=== PATIENT | male | born 1960 | race African-American/Black ===

== ENCOUNTER 2019-05-27 16:42 | Emergency (ER) | payer MEDICAID, OTHER ==
[~2019-05-27] VITALS: Ht 182.9 cm; Wt 99.8 kg
[2019-05-27 17:58] LABS: Basophils # (auto) 0.1 uL; Basophils % (auto) 1.9 % (0.0-2.0); Eosinophils # (auto) 0.1 uL; Eosinophils % (auto) 3.2 % (0.0-7.0); Hematocrit 40.7 % (41.0-53.0); Hemoglobin 13.3 g/dL (13.5-17.5); Lymphocytes # (auto) 1.3 uL; Lymphocytes % (auto) 31.1 % (10.0-50.0); Mean Corpuscular Hemoglobin 29.4 pg (28.0-32.0); Mean Corpuscular Hgb Conc. 32.8 g/dL (32.0-36.0); Mean Corpuscular Volume 89.5 fL (80.0-100.0); Monocytes # (auto) 0.5 uL; Monocytes % (auto) 12.5 % (0.0-12.0); Neutrophils # (auto) 2.2 uL; Neutrophils % (auto) 51.3 % (37.0-80.0); Nucleated Red Blood Cells % 0.1 %; Platelet Count (auto) 377 10^3/uL (140-450); Red Blood Cells 4.54 10^6/uL (4.5-5.90); Red Cell Distribution Width 13.9 % (11.8-14.3); White Blood Cell 4.3 10^3/uL (4.4-10.8)
[2019-05-27 18:19] LABS: Albumin 3.4 g/dL (3.4-5.0); Calcium 8.8 mg/dL (8.5-10.1); Potassium 3.9 mmol/L (3.5-5.1)
[2019-05-27 18:24] LABS: Acetaminophen < 2.0 ug/mL (10-30); Bilirubin, Total 0.3 mg/dL (0.2-1.0); Salicylate < 1.7 mg/dL (2.8-20.0); Total Protein 7.3 g/dL (6.4-8.2)
[2019-05-28 01:42] LABS: Alcohol, Urine < 3.0 mg/dL (0-5); Amphetamine Screen, Urine POSITIVE (NEGATIVE); Barbiturate Scree,Urine NEGATIVE (NEGATIVE); Benzodiazephine Screen, Urine NEGATIVE (NEGATIVE); Cannabinoid Screen, Urine NEGATIVE (NEGATIVE); Cocaine Screen, Urine NEGATIVE (NEGATIVE); Opiate Scree,Urine NEGATIVE (NEGATIVE)
[2019-05-28 01:49] LABS: Phencyclidine Screen, Urine NEGATIVE (NEGATIVE)
[2019-05-28] MEDS ORDERED: buPROPion HCL 100 MG TAB PO ONE (22:00)
[2019-05-28] MEDS ORDERED: OLANZapine 5 MG TAB PO ONE (22:00)
[2019-05-28] MEDS: buPROPion HCL 75 MG TAB PO SCH (22:50)
[2019-05-28] MEDS: OLANZapine 5 MG TAB PO SCH (22:50)
[2019-05-29] MEDS ORDERED: OLANZapine 5 MG TAB PO ONE (08:00)
[2019-05-29] MEDS: OLANZapine 5 MG TAB PO SCH ×2 (08:11→21:43)
[2019-05-29] MEDS: buPROPion HCL 75 MG TAB PO SCH ×2 (10:37→21:43)
[2019-05-30] MEDS: buPROPion HCL 75 MG TAB PO SCH (13:16)
[2019-05-30] MEDS: OLANZapine 5 MG TAB PO SCH (13:16)
[2019-05-31 08:00] VITALS: BP 134/90
[2019-05-31] MEDS ORDERED: ACETAMINOPHEN 325 MG TAB PO ONE ×2 (10:00→10:39)
[2019-05-31] MEDS ORDERED: OLANZapine 5 MG TAB ONE (10:24)
[2019-05-31] MEDS ORDERED: buPROPion HCL 75 MG TAB ONE (10:31)
[2019-05-31] MEDS: buPROPion HCL 75 MG TAB PO SCH (10:37)
[2019-05-31] MEDS: OLANZapine 5 MG TAB PO SCH (10:37)
== END 2019-05-31 17:22 | disposition home or self-care (01) ==
LOC: ER 16:48
DX: F32.9 Major depressive disorder, single episode, unspecified (principal); R45.851 Suicidal ideations; I10 Essential (primary) hypertension
CPT/HCPCS: 36415; 80053; 80307; 80329; 85025

== ENCOUNTER 2019-10-28 16:21 | Emergency (ER) | payer MEDICAID ==
[~2019-10-28] VITALS: Ht 188 cm; Wt 98.4 kg
[2019-10-28 16:41] VITALS: BP 112/67
== END 2019-10-28 17:41 | disposition home or self-care (01) ==
LOC: ER 16:21
DX: F31.9 Bipolar disorder, unspecified (principal); Z76.0 Encounter for issue of repeat prescription; B35.9 Dermatophytosis, unspecified; I10 Essential (primary) hypertension; Z88.0 Allergy status to penicillin

== ENCOUNTER 2019-10-29 19:21 | Emergency (ER) | payer MEDICAID ==
[~2019-10-29] VITALS: Ht 182.9 cm; Wt 90.7 kg
[2019-10-29 20:11] VITALS: BP 160/97
[2019-10-29 21:23] LABS: Basophils # (auto) 0 10 ^3/uL (0-0.2); Basophils % (auto) 0.6 % (0.0-2.0); Eosinophils # (auto) 0.1 10 ^3/uL (0-0.8); Eosinophils % (auto) 4.1 % (0.0-7.0); Hematocrit 40.3 % (41.0-53.0); Hemoglobin 13.2 g/dL (13.5-17.5); Lymphocytes # (auto) 1.2 10 ^3/uL (0.4-5.4); Lymphocytes % (auto) 33.7 % (10.0-50.0); Mean Corpuscular Hemoglobin 29.4 pg (28.0-32.0); Mean Corpuscular Hgb Conc. 32.9 g/dL (32.0-36.0); Mean Corpuscular Volume 89.3 fL (80.0-100.0); Monocytes # (auto) 0.5 10 ^3/uL (0-1.3); Monocytes % (auto) 13.6 % (0.0-12.0); Neutrophils # (auto) 1.7 10 ^3/uL (1.6-8.6); Nucleated Red Blood Cells % 0.2 %; Platelet Count (auto) 300 10^3/uL (140-450); Red Blood Cells 4.51 10^6/uL (4.5-5.90); Red Cell Distribution Width 14.3 % (11.8-14.3); White Blood Cell 3.6 10^3/uL (4.4-10.8)
[2019-10-29 21:29] LABS: Albumin 3.1 g/dL (3.4-5.0); BUN/Creatinine Ratio 12.6; Calcium 8.3 mg/dL (8.5-10.1); Magnesium 2.1 mg/dL (1.6-2.6); Potassium 3.9 mmol/L (3.5-5.1)
[2019-10-29 21:31] LABS: Acetaminophen < 2.0 ug/mL (10-30); Bilirubin, Total 0.3 mg/dL (0.2-1.0); Salicylate < 1.7 mg/dL (2.8-20.0); Total Protein 6.6 g/dL (6.4-8.2)
[2019-10-30 02:06] LABS: Urine Bacteria FEW /hpf (None Seen); Urine Blood Negative /uL (Negative); Urine Mucus FEW (None Seen); Urine Specific Gravity 1.033 (1.001-1.035); Urine WBC <1 /hpf (0 - 3)
[2019-10-30 02:17] LABS: Amphetamine Screen, Urine POSITIVE (NEGATIVE); Barbiturate Scree,Urine NEGATIVE (NEGATIVE); Benzodiazephine Screen, Urine NEGATIVE (NEGATIVE); Cannabinoid Screen, Urine NEGATIVE (NEGATIVE); Cocaine Screen, Urine NEGATIVE (NEGATIVE); Phencyclidine Screen, Urine NEGATIVE (NEGATIVE)
[2019-10-30 02:24] LABS: Opiate Scree,Urine NEGATIVE (NEGATIVE)
== END 2019-10-30 06:08 | disposition still patient (30) ==
LOC: ER 19:21 → EDBD 19:21 → ER 10-30 06:08
DX: F19.20 Other psychoactive substance dependence, uncomplicated (principal); R45.851 Suicidal ideations; I10 Essential (primary) hypertension
CPT/HCPCS: 36415; 80053; 80307; 80320; 80329; 81001; 83735; 85025; 93005

== ENCOUNTER → 2019-11-21 | Emergency (ER) | payer MEDICAID ==
[~2019-11-21] VITALS: Ht 185.4 cm; Wt 97.1 kg
[2019-11-21 03:14] LABS: Basophils # (auto) 0.1 10 ^3/uL (0-0.2); Basophils % (auto) 1.1 % (0.0-2.0); Eosinophils # (auto) 0.1 10 ^3/uL (0-0.8); Eosinophils % (auto) 2.9 % (0.0-7.0); Hematocrit 40.4 % (41.0-53.0); Hemoglobin 13.4 g/dL (13.5-17.5); Lymphocytes # (auto) 1.1 10 ^3/uL (0.4-5.4); Lymphocytes % (auto) 22.6 % (10.0-50.0); Mean Corpuscular Hemoglobin 29.7 pg (28.0-32.0); Mean Corpuscular Hgb Conc. 33.1 g/dL (32.0-36.0); Mean Corpuscular Volume 89.6 fL (80.0-100.0); Monocytes # (auto) 0.5 10 ^3/uL (0-1.3); Monocytes % (auto) 11.2 % (0.0-12.0); Neutrophils % (auto) 62.2 % (37.0-80.0); Nucleated Red Blood Cells % 0.1 %; Platelet Count (auto) 289 10^3/uL (140-450); Red Blood Cells 4.51 10^6/uL (4.5-5.90); Red Cell Distribution Width 14.4 % (11.8-14.3); White Blood Cell 4.8 10^3/uL (4.4-10.8)
[2019-11-21 03:34] LABS: Alanine Aminotransferase 29 U/L (16-61); Albumin 3.2 g/dL (3.4-5.0); Anion Gap 10 (5-15); BUN/Creatinine Ratio 13.3; Blood Alcohol < 3.0 mg/dL (0-5); Blood Urea Nitrogen 15 mg/dL (7-18); Calcium 8.2 mg/dL (8.5-10.1); Carbon Dioxide 23 mmol/L (21-32); Chloride 110 mmol/L (98-107); GFR African American 85 mL/min; GFR Non-African American 71 mL/min; Glucose 181 mg/dL (74-106); Salicylate < 1.7 mg/dL (2.8-20.0); Sodium 143 mmol/L (136-145)
[2019-11-21 03:37] LABS: Acetaminophen < 2.0 ug/mL (10-30); Alkaline Phosphatase 89 U/L (45-117); Aspartate Aminotransferase 35 U/L (15-37); Bilirubin, Total 0.6 mg/dL (0.2-1.0); Total Protein 6.5 g/dL (6.4-8.2)
[2019-11-21 03:47] LABS: Urine WBC None Seen /hpf (0 - 3)
[2019-11-21 03:58] LABS: Urine Bacteria NONE SEEN /hpf (None Seen); Urine Blood Negative /uL (Negative); Urine Mucus FEW (None Seen); Urine Specific Gravity 1.029 (1.001-1.035)
[2019-11-21 04:12] LABS: Alcohol, Urine < 3.0 mg/dL (0-5); Amphetamine Screen, Urine POSITIVE (NEGATIVE); Barbiturate Scree,Urine NEGATIVE (NEGATIVE); Benzodiazephine Screen, Urine NEGATIVE (NEGATIVE); Cannabinoid Screen, Urine POSITIVE (NEGATIVE); Cocaine Screen, Urine NEGATIVE (NEGATIVE); Opiate Scree,Urine NEGATIVE (NEGATIVE); Phencyclidine Screen, Urine NEGATIVE (NEGATIVE)
[2019-11-21 09:45] VITALS: BP 135/81
== END | disposition short-term general hospital (02) ==
LOC: ER 02:20
DX: R45.851 Suicidal ideations (principal); F32.9 Major depressive disorder, single episode, unspecified; I10 Essential (primary) hypertension; F15.10 Other stimulant abuse, uncomplicated
CPT/HCPCS: 36415; 80053; 80307; 80320; 80329; 81001; 85025

== ENCOUNTER 2019-11-29 01:03 | Emergency (ER) | payer MEDICAID ==
[~2019-11-29] VITALS: Ht 185.4 cm; Wt 92.1 kg
[2019-11-29 02:31] LABS: Basophils # (auto) 0.1 10 ^3/uL (0-0.2); Basophils % (auto) 1.1 % (0.0-2.0); Eosinophils # (auto) 0.1 10 ^3/uL (0-0.8); Eosinophils % (auto) 1.7 % (0.0-7.0); Hematocrit 41.1 % (41.0-53.0); Hemoglobin 13.6 g/dL (13.5-17.5); Lymphocytes # (auto) 0.9 10 ^3/uL (0.4-5.4); Mean Corpuscular Hemoglobin 29.5 pg (28.0-32.0); Mean Corpuscular Volume 89.4 fL (80.0-100.0); Monocytes # (auto) 0.5 10 ^3/uL (0-1.3); Monocytes % (auto) 9.5 % (0.0-12.0); Neutrophils % (auto) 71.7 % (37.0-80.0); Nucleated Red Blood Cells % 0.2 %; Platelet Count (auto) 339 10^3/uL (140-450); White Blood Cell 5.5 10^3/uL (4.4-10.8)
[2019-11-29 02:49] LABS: Acetaminophen < 2.0 ug/mL (10-30); Albumin 3.5 g/dL (3.4-5.0); BUN/Creatinine Ratio 17.1; Calcium 8.6 mg/dL (8.5-10.1); Potassium 3.8 mmol/L (3.5-5.1); Salicylate < 1.7 mg/dL (2.8-20.0)
[2019-11-29 02:52] LABS: Bilirubin, Total 0.4 mg/dL (0.2-1.0); Total Protein 6.8 g/dL (6.4-8.2)
[2019-11-29 05:38] LABS: Urine Bacteria NONE SEEN /hpf (None Seen); Urine Blood Negative /uL (Negative); Urine Specific Gravity 1.033 (1.001-1.035); Urine WBC <1 /hpf (0 - 3)
[2019-11-29 05:43] LABS: Amphetamine Screen, Urine POSITIVE (NEGATIVE); Barbiturate Scree,Urine NEGATIVE (NEGATIVE); Benzodiazephine Screen, Urine NEGATIVE (NEGATIVE); Cannabinoid Screen, Urine POSITIVE (NEGATIVE); Cocaine Screen, Urine NEGATIVE (NEGATIVE); Opiate Scree,Urine NEGATIVE (NEGATIVE); Phencyclidine Screen, Urine NEGATIVE (NEGATIVE)
[2019-11-29 08:19] VITALS: BP 132/86
== END 2019-11-29 08:37 | disposition home or self-care (01) ==
LOC: ER 01:05
DX: F32.9 Major depressive disorder, single episode, unspecified (principal); R45.851 Suicidal ideations; F19.10 Other psychoactive substance abuse, uncomplicated; F41.9 Anxiety disorder, unspecified; I10 Essential (primary) hypertension
CPT/HCPCS: 36415; 80053; 80307; 80320; 80329; 81001; 85025